=== PATIENT | male | born 1980 | race Caucasian/White ===

== ENCOUNTER 2020-08-07 01:43 | Emergency (ER) | payer SELFPAY ==
[~2020-08-07] VITALS: Ht 177.8 cm; Wt 74.8 kg
[2020-08-07 01:48] VITALS: BP 114/81
--- NOTE | 2020-08-07 02:30 | NUR ---
OPAL HE IN TRIAGE WITH PT. FOR EXAMINATION
[2020-08-07 03:00] VITALS: BP 114/81
--- NOTE | 2020-08-07 03:00 | NUR ---
PT. ELOPED FROM TRIAGE FOLLOWING EVALUATION BY OPAL
== END 2020-08-07 03:00 | disposition left against medical advice (07) ==
LOC: MED 01:43
DX: R11.0 Nausea (principal); Z53.21 Procedure and treatment not carried out due to patient leaving prior to being seen by health care provider